=== PATIENT | female | born 1980 | race Caucasian/White ===

== ENCOUNTER 2022-03-19 16:45 | Inpatient (IN) | payer MEDICAID ==
[~2022-03-19] VITALS: Ht 149.9 cm; Wt 45.4 kg
[2022-03-19 16:45] VITALS: BP_SYST 117
[2022-03-19] MEDS ORDERED: IPRATROPIUM BROM 0.5 MG/2.5 ML VIAL.NEB (ATROVENT) INH ONE (17:45)
[2022-03-19] MEDS ORDERED: ALBUTEROL SULFATE 0.083% 2.5 MG/3 ML VIAL.NEB INH ONE (17:45)
[2022-03-19 17:46] LABS: BASOPHILS # (AUTO) 0.1 K/uL (0.0-0.2); BASOPHILS % (AUTO) 0.7 % (0.0-2.0); EOSINOPHILS # (AUTO) 0.1 K/uL (0.0-0.4); EOSINOPHILS % (AUTO) 0.4 % (0.0-4.0); HEMOGLOBIN 12.6 g/dL (12.0-16.0); LYMPHOCYTES # (AUTO) 3.3 K/uL (1.0-5.5); LYMPHOCYTES % (AUTO) 17.9 % (20.5-51.5); MEAN CORPUSCULAR HEMOGLOBIN 33 pg (27-31); MEAN CORPUSCULAR HGB CONC 33 % (32-36); MEAN CORPUSCULAR VOLUME 98 fL (79.0-98.0); MONOCYTES # (AUTO) 0.9 K/uL (0.0-1.0); NEUTROPHILS # (AUTO) 13.9 K/uL (1.8-7.7); PLATELET COUNT (AUTO) 307 K/uL (130-430); RED BLOOD CELL COUNT(AUTO) 3.86 MIL/uL (4.2-6.2); RED CELL DISTRIBUTION WIDTH 16.2 % (9.0-15.0); WHITE BLOOD COUNT (AUTO) 18.2 K/uL (4.8-10.8)
[2022-03-19 17:58] LABS: ANION GAP 9 (5-15); CHLORIDE 100 mmol/L (98-107); CREATININE 0.55 mg/dL (0.55-1.30); GLUCOSE 127 mg/dL (70-99); UREA NITROGEN, BLOOD 17 mg/dL (8-21)
[2022-03-19 18:02] LABS: GFR AFRICAN AMERICAN 158 mL/min (>90)
[2022-03-19 18:13] LABS: ALANINE AMINOTRANSFERASE 19 U/L (12-78); ALBUMIN 2.6 g/dL (3.4-4.8); ASPARTATE AMINOTRANSFERASE 32 U/L (10-37); TOTAL BILIRUBIN 0.2 mg/dL (0.0-1.0)
[2022-03-19] MEDS ORDERED: KETAMINE HCL 500 MG/10 ML VIAL ONE (18:13)
[2022-03-19] MEDS ORDERED: NACL 0.9% 1,000 ML IV ONE (19:45)
[2022-03-19] MEDS ORDERED: VECURONIUM BROMIDE 10 MG/VIAL (NORCURON) ONE (20:00)
[2022-03-19 21:04] VITALS: BP_SYST 0
== END 2022-03-19 20:30 | DRG 720 ==
LOC: SED 16:45 → SIC 19:34
PROVIDERS: ADMIT Family Medicine; ATTEND Family Medicine
PROC: 05HY33Z Insertion of Infusion Device into Upper Vein, Percutaneous Approach (ICD-10-PCS; principal; 2022-03-19)
PROC: B54MZZA Ultrasonography of Right Upper Extremity Veins, Guidance (ICD-10-PCS; 2022-03-19)
PROC: 5A1935Z Respiratory Ventilation, Less than 24 Consecutive Hours (ICD-10-PCS; 2022-03-19)
PROC: 0BH17EZ Insertion of Endotracheal Airway into Trachea, Via Natural or Artificial Opening (ICD-10-PCS; 2022-03-19)
DX: A41.9 Sepsis, unspecified organism (principal); J96.01 Acute respiratory failure with hypoxia; J69.0 Pneumonitis due to inhalation of food and vomit; I21.4 Non-ST elevation (NSTEMI) myocardial infarction; Z20.822 Contact with and (suspected) exposure to COVID-19; E43 Unspecified severe protein-calorie malnutrition
CPT/HCPCS: 36415; 36600; 71045; 80053; 82803-TC; 83605; 83880; 84484; 85025; 93005; 94002; 94640; 99291; J3490; J7613